=== PATIENT | male | born 1985 | race Caucasian/White ===

== ENCOUNTER 2020-09-06 14:57 | Inpatient (IN) | payer OTHER ==
[~2020-09-06] VITALS: Ht 180.3 cm; Wt 145.1 kg
[~2020-09-06 14:57] MED LIST: CLARITIN10 MG PO; ECOTRIN81 MG PO; FLAGYL500 MG PO; HYDROCHLOROTHIA25 MG PO; LEVAQUIN500 MG PO; NORVASC10 MG PO; PRINIVIL10 MG PO; ZANTAC150 MG PO
[2020-09-06 19:19] LABS: HEMOGLOBIN 17.2 gm/dl (14.0-17.5); RED BLOOD COUNT 5.7 M/UL (4.20-5.50)
[2020-09-06 19:38] LABS: BUN/CREATININE RATIO 19 (0-10)
[2020-09-07] MEDS ORDERED: LOPRESSOR50 MG PO (01:16)
[2020-09-07 06:48] LABS: WHITE BLOOD COUNT 6.5 K/UL (4.5-11.0)
[2020-09-07 07:00] LABS: HEMOGLOBIN 15.2 gm/dl (14.0-17.5); RED BLOOD COUNT 5.09 M/UL (4.20-5.50)
[2020-09-07 07:19] LABS: BUN/CREATININE RATIO 21 (0-10)
[2020-09-08 04:31] LABS: HEMOGLOBIN 14.4 gm/dl (14.0-17.5); RED BLOOD COUNT 4.85 M/UL (4.20-5.50)
[2020-09-08 04:34] LABS: WHITE BLOOD COUNT 10.5 K/UL (4.5-11.0)
[2020-09-08 05:00] LABS: BUN/CREATININE RATIO 30 (0-10)
--- NOTE | 2020-09-08 17:55 | NUR ---
pr refused tele while in shower
[2020-09-09 07:05] LABS: HEMOGLOBIN 13.9 gm/dl (14.0-17.5); RED BLOOD COUNT 4.89 M/UL (4.20-5.50); WHITE BLOOD COUNT 12.2 K/UL (4.5-11.0)
[2020-09-09 07:17] LABS: BUN/CREATININE RATIO 35 (0-10)
[2020-09-10] MEDS ORDERED: DEXAMETHASONE1 MG PO (14:31)
[2020-09-10] MEDS ORDERED: NORVASC10 MG PO (14:31)
== END 2020-09-10 15:54 | disposition home or self-care (01) | DRG 177 ==
LOC: ER1 14:57 → CDU 20:05 → MED SURG 4 20:05
PROVIDERS: Internal Medicine; Physician Assistant; ADMIT Internal Medicine
PROC: XW033E5 Introduction of Remdesivir Anti-infective into Peripheral Vein, Percutaneous Approach, New Technology Group 5 (ICD-10-PCS; principal; 2020-09-06)
PROC: 3E0333Z Introduction of Anti-inflammatory into Peripheral Vein, Percutaneous Approach (ICD-10-PCS; 2020-09-06)
PROC: XW13325 Transfusion of Convalescent Plasma (Nonautologous) into Peripheral Vein, Percutaneous Approach, New Technology Group 5 (ICD-10-PCS; 2020-09-07)
DX: U07.1 COVID-19 (principal); J96.01 Acute respiratory failure with hypoxia; J12.82 Pneumonia due to coronavirus disease 2019; A08.39 Other viral enteritis; Z68.41 Body mass index [BMI] 40.0-44.9, adult; E87.6 Hypokalemia; E86.0 Dehydration; I10 Essential (primary) hypertension; E66.01 Morbid (severe) obesity due to excess calories; Z79.82 Long term (current) use of aspirin; Z83.3 Family history of diabetes mellitus; Z90.49 Acquired absence of other specified parts of digestive tract; Z84.89 Family history of other specified conditions
CPT/HCPCS: 36415; 36600; 71045; 80048; 80053; 81001; 82550; 82553; 82803; 83874; 84484; 85025; 85379; 86900; 86901; 86927; 93005; 96374; 96375; 99285; G0378; J1100; J1650; J2405; J3480; J7030; J7050; U0002